=== PATIENT | male | born 1995 | race Two or more races ===

== ENCOUNTER 2025-10-23 22:27 | Emergency (ER) | payer MEDICAID, OTHER ==
[~2025-10-23] VITALS: Ht 172.7 cm; Wt 72.9 kg
[2025-10-24 00:12] VITALS: BP 148/96; PULSE 100; RESP 18; TEMP 98; O2SAT 98
[2025-10-24] MEDS ORDERED: IBUP-1456 PO (00:13)
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
== END 2025-10-24 00:22 | disposition home or self-care (01) ==
LOC: ER 22:27
DX: S93.401A Sprain of unspecified ligament of right ankle, initial encounter (principal); V89.9XXA Person injured in unspecified vehicle accident, initial encounter; Y93.I9 Activity, other involving external motion; Y92.488 Other paved roadways as the place of occurrence of the external cause; Y99.8 Other external cause status
CPT/HCPCS: 73610